=== PATIENT | female | born 1950 | race Caucasian/White ===

== ENCOUNTER → 2020-08-14 | Outpatient (CLI) | payer MEDICARE, OTHER ==
[~2020-08-14] MED LIST: ALLEGRA ALLERG180 MG PO; AMARYL4 MG PO; ASPIRIN CHEWABL81 MG PO; AUGMENTIN 875-1 EACH PO; COZAAR50 MG PO; DOXYCYCLINE HY100 M2 PO; DYAZIDE 37.5/251 EA PO; FERROUS SULFAT325 M2 PO; GLUCOPHAGE1000 MG PO; ISOSORBIDE MONO30 MG PO; KLOR-CON 1010 MEQ PO; LANTUS100 UNIT/1 SQ; LASIX80 MG PO; LIPITOR TAB 2020 MG PO; LORTAB 7.5-3251 EACH PO; METOPROLOL SUCC50 MG PO; MIRALAX17 GM PO; MOBIC15 MG PO; PROBIOTIC1 EAC3 PO; VIBRAMYCIN100 MG PO; ZOFRAN ODT 4 MG4 MG SL; ZOFRAN4 MG PO
== END ==
LOC: WCC 13:00
DX: E11.628 Type 2 diabetes mellitus with other skin complications (principal); I87.323 Chronic venous hypertension (idiopathic) with inflammation of bilateral lower extremity; I10 Essential (primary) hypertension; E11.65 Type 2 diabetes mellitus with hyperglycemia; I87.2 Venous insufficiency (chronic) (peripheral); G47.30 Sleep apnea, unspecified; E66.01 Morbid (severe) obesity due to excess calories; Z79.4 Long term (current) use of insulin
CPT/HCPCS: 97597

== ENCOUNTER → 2020-08-21 | Outpatient (CLI) | payer MEDICARE | LOC: WCC 13:00 | DX: E11.628 Type 2 diabetes mellitus with other skin complications (principal); E11.65 Type 2 diabetes mellitus with hyperglycemia; I87.323 Chronic venous hypertension (idiopathic) with inflammation of bilateral lower extremity; I87.2 Venous insufficiency (chronic) (peripheral); G47.30 Sleep apnea, unspecified; I10 Essential (primary) hypertension; E66.01 Morbid (severe) obesity due to excess calories; Z79.4 Long term (current) use of insulin | CPT/HCPCS: G0463 ==